=== PATIENT | female | born 1980 | race Hispanic/Latino ===

== ENCOUNTER 2020-04-26 08:03 | Day surgery (SDC) | payer MEDICAID ==
[2020-04-22 12:42] LABS: BASOPHILS % (AUTO) 0.4 % (0.0-5.0); EOSINOPHILS % (AUTO) 2.5 % (0.0-8.0); HEMATOCRIT 39.4 % (36-48); LYMPHOCYTES % (AUTO) 25.1 % (21.0-51.0); MEAN CORPUSCULAR HEMOGLOBIN 28.7 pg (27.0-33.0); MEAN CORPUSCULAR HGB CONC 32.7 g/dL (32.0-36.0); MEAN CORPUSCULAR VOLUME 87.8 fL (79-99); MONOCYTES % (AUTO) 6.9 % (3.0-13.0); NEUTROPHILS % (AUTO) 64.8 % (40.0-77.0); PLATELET COUNT (AUTO) 310 K/uL (130-400); RED BLOOD CELL COUNT(AUTO) 4.49 MIL/uL (4.00-5.50); RED CELL DISTRIBUTION WIDTH 14.5 % (11.0-15.5); WHITE BLOOD COUNT (AUTO) 6.8 K/uL (4.8-10.8)
[2020-04-22 12:52] LABS: INR 0.95 (0.85-1.15); PARTIAL THROMBOPLASTIN TIME 26.4 SEC (26.3-35.5); PROTHROMBIN TIME 10.3 SEC (9.6-11.6)
[2020-04-22 12:59] LABS: CREATININE 0.9 mg/dL (0.5-1.5); POTASSIUM 4.2 mmol/L (3.5-5.1)
[2020-04-25 14:17] VITALS: BP 97/62
--- NOTE | 2020-04-25 15:43 | NUR ---
PT WAS NOT ANSWERING PHONE. I HAVE NOW SPOKE TO HER ON TELEPHONE . SHE IS HAVING THOUGHTS OF RESCHEDULING PROCEDURE. I DIRECTED HER TO CALL DR BECKER OFFICE AND LET THEM KNOW HER DECISION
[~2020-04-26] VITALS: Ht 172.7 cm; Wt 85.8 kg
[2020-04-26] VITALS (9 sets, daily range): BP systolic 98–138; BP diastolic 63–83
[~2020-04-26 08:03] MED LIST: ALBU8.5H8 IH; DULO30CA52 PO; PREG200C PO; SODIUM CHLORIDE 0.9% 1000ML 1,000 ML IV SCH; VERA180T13 PO
[2020-04-26] MEDS ORDERED: OMEP10CA5 PO (09:28)
--- NOTE | 2020-04-26 11:54 | NUR ---
GAVE REPORT MISAEL PAL, NO CONCERNS.
[2020-04-26] MEDS ORDERED: MEPERIDINE-PF 25 MG/ML SYG ONE (12:29)
[2020-04-26] MEDS ORDERED: LIDOCAINE HCL 2% 20ML ONE ×2 (12:29→13:25)
[2020-04-26] MEDS ORDERED: HEPARIN SODIUM 1000UNIT/ML 10ML VIAL ONE (12:29)
[2020-04-26] MEDS ORDERED: MIDAZOLAM HCL 1 MG/ML 2ML VIAL ONE ×3 (12:29→15:00)
[2020-04-26] MEDS ORDERED: FENTANYL CITRATE PF 50 MCG/1 ML 2ML VIAL ONE ×3 (12:59→15:00)
[2020-04-26] MEDS ORDERED: ISOPROTERENOL HCL 0.2 MG/ML AMP/VIAL/BAG ONE (13:58)
[2020-04-26] MEDS ORDERED: PROP225C8 PO (16:17)
[2020-04-26] MEDS ORDERED: ACETAMINOPHEN-CODEINE 300/30MG TAB ONE (16:45)
[2020-04-26] MEDS ORDERED: ACETAMINOPHEN-CODEINE 300/30MG TAB PO ONE (18:00)
--- NOTE | 2020-04-26 18:20 | NUR ---
URINARY ELIMINATION / ACTIVITY ASSISTED TO STANDING POSITION WITHOUT COMPLAINING OF DIZZINESS. AMBULATED TO BATHROOM WITH STEADY GAIT. VOIDED QS CLEAR YELLOW URINE. ASSISTED TO BED AT SITTING POSITION.
== END 2020-04-26 18:37 | disposition home or self-care (01) ==
LOC: DAH 08:03
PROVIDERS: ATTEND Internal Medicine Cardiovascular Disease
DX: I47.2 Ventricular tachycardia (principal); F32.9 Major depressive disorder, single episode, unspecified; F41.9 Anxiety disorder, unspecified; M79.7 Fibromyalgia; Z98.890 Other specified postprocedural states; Z82.49 Family history of ischemic heart disease and other diseases of the circulatory system; Z79.899 Other long term (current) drug therapy; Z79.82 Long term (current) use of aspirin; Z79.01 Long term (current) use of anticoagulants
CPT/HCPCS: 36415; 80048; 84703; 85025; 85610; 85730; 93613; 93621; 93623; 93653; A4215; A4216; A4221; A4222; A4223 ×3; A4606; A4649 ×2; A4663; C1730 ×4; C1731; C1894 ×5; J1644 ×3; J2250 ×3; J3010 ×3; J3490 ×3; J7030; 99156; 99157; J2175

== ENCOUNTER 2020-12-29 09:15 | Observation (INO) | payer MEDICAID ==
[2020-12-20 15:30] LABS: BASOPHILS % (AUTO) 0.5 % (0.0-5.0); EOSINOPHILS % (AUTO) 1.3 % (0.0-8.0); HEMATOCRIT 38.7 % (36-48); LYMPHOCYTES % (AUTO) 35.3 % (21.0-51.0); MEAN CORPUSCULAR HEMOGLOBIN 29.3 pg (27.0-33.0); MEAN CORPUSCULAR HGB CONC 32.8 g/dL (32.0-36.0); MEAN CORPUSCULAR VOLUME 89.2 fL (79-99); MONOCYTES % (AUTO) 8.1 % (3.0-13.0); NEUTROPHILS % (AUTO) 54.5 % (40.0-77.0); PLATELET COUNT (AUTO) 328 K/uL (130-400); RED BLOOD CELL COUNT(AUTO) 4.34 MIL/uL (4.00-5.50); RED CELL DISTRIBUTION WIDTH 15.1 % (11.0-15.5); WHITE BLOOD COUNT (AUTO) 6.1 K/uL (4.8-10.8)
[2020-12-20 15:42] LABS: CREATININE 0.8 mg/dL (0.5-1.5); POTASSIUM 4.4 mmol/L (3.5-5.1)
[2020-12-20 15:45] LABS: PROTHROMBIN TIME 10.9 SEC (9.6-11.6)
[2020-12-20 15:46] LABS: PARTIAL THROMBOPLASTIN TIME 27.5 SEC (26.3-35.5)
[~2020-12-29] VITALS: Ht 172.7 cm; Wt 83.1 kg
[2020-12-29] VITALS (9 sets, daily range): BP systolic 114–147; BP diastolic 49–77
[~2020-12-29 09:15] MED LIST changes: -ALBU8.5H8 IH; +ASPI-1443 PO; +DRON400T7 PO; -DULO30CA52 PO; +DULO60CA64 PO; +FIORIT PO; +OXYC1TAB12 PO; +PREG150C PO; -PREG200C PO; -SODIUM CHLORIDE 0.9% 1000ML 1,000 ML IV SCH; +VERA120T13 PO; -VERA180T13 PO
[2020-12-29] MEDS ORDERED: 0.9%NACL 1000ML 1,000 ML IV ONE (10:08)
[2020-12-29] MEDS ORDERED: MEPERIDINE-PF 25 MG/ML SYG ONE (14:13)
[2020-12-29] MEDS ORDERED: MIDAZOLAM HCL 1 MG/ML 2ML VIAL ONE ×3 (14:13→17:24)
[2020-12-29] MEDS ORDERED: HEPARIN 10,000 UNIT/10ML (1,000 UNIT/ML) VIAL ONE (14:13)
[2020-12-29] MEDS ORDERED: LIDOCAINE HCL 400MG/20ML VIAL ONE (14:14)
[2020-12-29] MEDS ORDERED: FENTANYL CITRATE PF 50 MCG/1 ML 2ML VIAL ONE ×2 (14:40→17:24)
[2020-12-29] MEDS ORDERED: ISOPROTERENOL HCL 0.2 MG/ML AMP/VIAL/BAG ONE (15:33)
[2020-12-29] MEDS ORDERED: ATROPINE 1MG SYG IVP ONE (15:56)
[2020-12-29] MEDS ORDERED: OXYCODONE/ACETAMIN 5/325MG TAB PO PRN (19:30)
[2020-12-29] MEDS ORDERED: PHARMACY COMMUNICATION MISC SCH (19:30)
[2020-12-29] MEDS: PREGABALIN 75 MG CAPSULE PO SCH (21:34)
[2020-12-30] MEDS ORDERED: ONDANSETRON 4MG INJ IVP ONE (01:00)
[2020-12-30] MEDS ORDERED: ONDANSETRON 4MG INJ ONE (01:03)
[2020-12-30 04:14] VITALS: BP 118/58
[2020-12-30 07:51] VITALS: BP 128/79
[2020-12-30] MEDS ORDERED: DULOXETINE HCL 30 MG CAP PO SCH (09:00)
[2020-12-30] MEDS ORDERED: ASPIRIN 81 MG EC TAB PO SCH (09:00)
[2020-12-30] MEDS: PREGABALIN 75 MG CAPSULE PO SCH (09:09)
[2020-12-30 12:00] VITALS: BP 102/61
== END 2020-12-30 13:43 | disposition home or self-care (01) ==
LOC: DAH 09:15 → 4BH 09:16
PROVIDERS: ADMIT Internal Medicine Cardiovascular Disease; ATTEND Internal Medicine Cardiovascular Disease
DX: I47.1 Supraventricular tachycardia (principal); R47.1 Dysarthria and anarthria; I49.9 Cardiac arrhythmia, unspecified; J45.909 Unspecified asthma, uncomplicated; K58.9 Irritable bowel syndrome, unspecified
CPT/HCPCS: 36415 ×2; 80048; 84703; 85025; 85610; 85730; 93005 ×3; 93613; 93621; 93623; 93653; 96361 ×2; 96374; A4649 ×2; C1730 ×2; C1731; C1732; C1894 ×5; G0378 ×19; J0461; J1644 ×2; J2175; J2250 ×3; J2405; J3010 ×2; J3490 ×2; J7030; 99156; 99157

== ENCOUNTER → 2021-01-06 | Outpatient (CLI) | payer MEDICAID ==
[~2021-01-06] MED LIST changes: -DRON400T7 PO; -FIORIT PO; -VERA120T13 PO
[2021-01-06 15:46] LABS: APPEARANCE,URINE Turbid (CLEAR); BILIRUBIN,URINE Negative (NEGATIVE); COLOR,URINE Yellow (YELLOW); GLUCOSE, URINE (UA) Negative (NEGATIVE); KETONES,URINE Negative (NEGATIVE); LEUKOCYTE ESTERASE ,URINE Trace (NEGATIVE); NITRATE,URINE Negative (NEGATIVE); OCCULT BLOOD,URINE Negative (NEGATIVE); PROTEIN,URINE Trace mg/dL (NEGATIVE)
[2021-01-06 16:11] LABS: AMORPHOUS SEDIMENT,UR Many /LPF (None Seen)
[2021-01-06 16:13] LABS: BACTERIA,URINE Rare /HPF (None Seen); RBC,URINE None Seen /HPF (0-1); SQUAMOUS EPITHELIAL CELL,UR 0-2 /HPF (0-2); WBC,URINE 0-1 /HPF (0-1)
== END | disposition home or self-care (01) ==
LOC: RAH 14:59
PROVIDERS: ATTEND Internal Medicine Cardiovascular Disease
DX: R10.31 Right lower quadrant pain (principal); I97.89 Other postprocedural complications and disorders of the circulatory system, not elsewhere classified
CPT/HCPCS: 36415; 76882; 81001; 85378; 87088

== ENCOUNTER → 2023-04-05 | Outpatient (CLI) | payer OTHER | END | disposition home or self-care (01) | LOC: RAH 13:02 | PROVIDERS: ATTEND Internal Medicine Cardiovascular Disease | DX: Z13.6 Encounter for screening for cardiovascular disorders (principal); R92.1 Mammographic calcification found on diagnostic imaging of breast; I25.10 Atherosclerotic heart disease of native coronary artery without angina pectoris | CPT/HCPCS: 75571 ==

== ENCOUNTER → 2023-09-09 | Outpatient (CLI) | payer MEDICAID ==
[2023-09-09 16:39] LABS: CREATININE 0.7 mg/dL (0.5-1.0)
== END | disposition home or self-care (01) ==
LOC: LAB 15:55
PROVIDERS: ATTEND Internal Medicine Cardiovascular Disease
DX: G90.9 Disorder of the autonomic nervous system, unspecified (principal)
CPT/HCPCS: 36415; 82565; 84520

== ENCOUNTER → 2023-12-16 | Outpatient (CLI) | payer MEDICAID ==
[~2023-12-16] MED LIST changes: +IOHEXOL 350 MG/ML 100ML INFUS..BTL IV ONE
== END | disposition home or self-care (01) ==
LOC: RAH 11:43
PROVIDERS: ATTEND Internal Medicine Cardiovascular Disease
DX: R07.9 Chest pain, unspecified (principal); R06.02 Shortness of breath; M47.815 Spondylosis without myelopathy or radiculopathy, thoracolumbar region; Z82.49 Family history of ischemic heart disease and other diseases of the circulatory system
CPT/HCPCS: 75574; Q9967